=== PATIENT | male | born 1980 | race Caucasian/White ===

== ENCOUNTER 2019-11-26 00:49 | Emergency (ER) | payer OTHER ==
[~2019-11-26] VITALS: Ht 180.3 cm; Wt 68.2 kg
[2019-11-26 00:52] VITALS: BP 128/94
== END 2019-11-26 01:31 | disposition home or self-care (01) ==
LOC: ED 01:22
DX: T18.128A Food in esophagus causing other injury, initial encounter (principal); X58.XXXA Exposure to other specified factors, initial encounter; Y93.89 Activity, other specified; Y92.89 Other specified places as the place of occurrence of the external cause; Y99.8 Other external cause status
CPT/HCPCS: 99283